=== PATIENT | female | born 1960 | race Caucasian/White ===

== ENCOUNTER 2022-11-29 22:17 | Emergency (ER) | payer OTHER, SELFPAY ==
[2022-11-29 22:27] VITALS: BP 135/82; PULSE 72; RESP 16; TEMP 36.8; O2SAT 99
--- NOTE | 2022-11-29 22:34 | DI.RAD.S_ITS ---
PROCEDURE: XR ANKLE RT MIN 3V INDICATIONS: fall/injury TECHNIQUE: 3 views of the ankle were acquired. COMPARISON: None. FINDINGS: Bones: No fractures or dislocations. Ankle mortise is normally aligned. No suspicious bony lesions. Soft tissues: No tibiotalar joint effusion. Achilles tendon appears normal. IMPRESSION: 1. No fracture or dislocation. Dictated by: Munir Mitchell M.D. on 11/30/2022 at 0:37 Approved by: Munir Mitchell M.D. on 11/30/2022 at 0:37
--- NOTE | 2022-11-29 22:34 | DI.RAD.S_ITS ---
PROCEDURE: XR KNEE LT 3V INDICATIONS: fall/injury TECHNIQUE: 3 views of the knee were acquired. COMPARISON: None. FINDINGS: Bones: No fractures or dislocations. No suspicious bony lesions. Soft tissues: No joint effusion. No suspicious soft tissue calcifications. IMPRESSION: 1. No fracture or dislocation. Dictated by: Munir Mitchell M.D. on 11/30/2022 at 0:40 Approved by: Munir Mitchell M.D. on 11/30/2022 at 0:41
--- NOTE | 2022-11-29 22:34 | DI.RAD.S_ITS ---
PROCEDURE: XR HAND LT MIN 3V INDICATIONS: fall/injury TECHNIQUE: Three views of the left hand acquired. COMPARISON: None. FINDINGS: Bones: No fractures or dislocations. Carpal bones are normally aligned. No suspicious bony lesions. Soft tissues: No suspicious soft tissue calcifications. IMPRESSION: 1. No fracture or dislocation. Dictated by: Munir Mitchell M.D. on 11/30/2022 at 0:39 Approved by: Munir Mitchell M.D. on 11/30/2022 at 0:40
[2022-11-30 04:07] VITALS: BP 154/83; PULSE 61; RESP 16; TEMP 36.6; O2SAT 99
--- NOTE | 2022-11-30 04:20 | ED.FALL ---
HPI - Fall General Chief Complaint: Fall Stated Complaint: rt ankle, lt knee and hand injury s/p fall Time Seen by Provider: 11/30/22 04:20 Source: patient Mode of arrival: Wheelchair History of Present Illness HPI Narrative: 62-year-old woman with no significant medical history is camping at [facility] and stumbled falling twisting her right ankle landing on her left palm and scraping her left knee. There is no head injury. She was able to get up and walk but noted that her left ankle was swelling and had a laceration to the left knee. Review of Systems Review of Systems Narrative: Pertinent positive and negative findings as per HPI Patient History Social History Smoking Status: Never smoker Smoking Status: Never smoker Substance Use Type: does not use Exam Initial Vital Signs Initial Vital Signs: Vital Signs Temperature 98.2 F 11/29/22 22:27 Pulse Rate 72 11/29/22 22:27 Respiratory Rate 16 11/29/22 22:27 Blood Pressure 135/82 11/29/22 22:27 Pulse Oximetry 99 11/29/22 22:27 Oxygen Delivery Method Room Air 11/29/22 22:27 General: Alert appropriate in no acute distress Respiratory: Able to speak in full sentences, no obvious respiratory distress Skin: No obvious rashes, warm and dry Neurologic: Grossly intact no obvious asymmetries or abnormalities Psych: appropriate insight and affect, cooperative Extremity: She has a triangular flap like laceration over the extensor surface of the knee on the left. No underlying bony abnormalities. She has swelling to the lateral malleolus on the right ankle. No contusion. Full range of motion she is able to bear weight minimal point tenderness. She has some bruising to the thenar eminence left hand with full range of motion. Procedures Laceration Repair Left knee: Time of procedure: 04:45 Site: lower extremity Side (If applicable): left Size (cm): 7 Description: flap and irregular Depth: simple, single layer Local Anesthetic: lidocaine 1% Amount of anesthesia used (mL): 4 Pre-repair: wound explored, irrigated extensively and deep structures intact Skin layer closed with: nylon Skin layer suture size: 4-0 Number of sutures: 4 Technique: horizontal mattress Orthopedic Splinting/Casting Right ankle: Time of procedure: 04:50 Side: right Lower Extremity Injury Location: ankle Lower Extremity Immobilizer: stirrup splint Post splinting neuro exam: intact Post splinting vascular exam: intact Placed by: Provider Course Orders Ordered: ED Orders 11/29/22 22:34 XR ankle RT min 3V Stat XR hand LT min 3V Stat XR knee LT 3V Stat Vital Signs Vital signs: Vital Signs - 8 hr 11/29/22 22:27 11/30/22 04:07 Temperature 98.2 F 97.8 F Pulse Rate 72 61 Respiratory Rate 16 16 Blood Pressure 135/82 154/83 H Pulse Oximetry 99 99 Oxygen Delivery Method Room Air Room Air MDM - Fall MDM Narrative Medical decision making narrative: CC: Fall twisting right ankle landing on left knee and left palm, acute uncertain prognosis Data collected from: patient, Differential considered: Fractures, sprains, lacerations, contusions Exam documented above, pertinent findings include: Sprained right ankle with swelling to the lateral malleolus, laceration to the left knee without any intra-articular extension sutured without difficulty. Abrasion to the left thenar eminence without need for any additional intervention Imaging studies independently reviewed: Right ankle is reviewed no fractures Left knee shows no fractures Left hand shows no fractures Treatments: Laceration repair Discussion: 62-year-old woman presents after fall on uneven surface. Minor injuries including right ankle sprain she is able to bear weight, left knee laceration sutures will need to be removed in 2 weeks as it is over an extensor surface, left contusion thenar eminence with no further evaluation needed. Findings reviewed with her recommended ibuprofen, reviewed signs and symptoms of infection and reasons to return to the emergency department Discharge Plan Departure Patient Disposition: Home Clinical Impression: Contusion of hand excluding finger Left ankle sprain Qualifiers: Encounter type: initial encounter Involved ligament of ankle: unspecified ligament Qualified Code(s): S93.402A - Sprain of unspecified ligament of left ankle, initial encounter Laceration of knee, right Qualifiers: Encounter type: initial encounter Qualified Code(s): S81.011A - Laceration without foreign body, right knee, initial encounter Activity Restrictions/Additional Instructions: Thank you for coming in today The laceration on your left knee will need to have sutures removed on or about December 14. Please keep a dressing over the wound and topical antibiotic ointment for at least the 1st couple of days. If you are noticing signs or symptoms of infection including redness, swelling or drainage you do need to be seen and evaluated again You sprained her right ankle with no evidence of fracture. I have given you in air stirrup splint for comfort. I would encourage you to return to physical therapy to continue strengthening that re-injured ankle. With your hand injury, it will likely turn black and blue and will resolve without any additional intervention Using ice any other wounds may be helpful. Using 400 mg of ibuprofen (2 [id number] pills) and 1 Tylenol every 6 hours can be very helpful in controlling pain. If you find that you are getting worse or develop any new symptoms, please feel free to return to the emergency department for further evaluation. I hope you are still able to enjoy your camping trip to [facility]. Stand Alone Forms: Patient Portal/API
== END 2022-11-30 05:06 | disposition home or self-care (01) ==
PROVIDERS: Emergency Provider Emergency Medicine
DX: S93.402A Sprain of unspecified ligament of left ankle, initial encounter (principal); S81.011A Laceration without foreign body, right knee, initial encounter; S60.222A Contusion of left hand, initial encounter; W18.30XA Fall on same level, unspecified, initial encounter
CPT/HCPCS: 73130; 73562; 73610; 99283